=== PATIENT | male | born 1995 | race Caucasian/White ===

== ENCOUNTER → 2017-02-20 | Emergency (ER) | payer SELFPAY ==
[~2017-02-20] VITALS: Ht 190.5 cm; Wt 77.1 kg
[~2017-02-20] MED LIST: [UNRECOGNIZED DRUG - OTHER]
[2017-02-20 21:09] VITALS: BP 130/73
--- NOTE | 2017-02-21 04:14 | Emergency Room Report ---
History of Present Illness General Chief Complaint: Substance Abuse Source: Patient Present Illness HPI Patient is a 21-year-old male who presented for increased diarrhea and body aches after stopping heroin. He reports having last used one day ago to he reports having generalized bodyaches. He denies any fever. He states that he had the previous he taken Suboxone. He denied any new skin lesions. Allergies: Coded Allergies: No Known Allergies (Unverified , 02/20/17) Patient History Past Medical History: see triage record Reviewed Nursing Documentation: PMH: Agreed, PSxH: Agreed Review of Systems All Other Systems: negative except mentioned in HPI Physical Exam Vital Signs Date Time Temp Pulse Resp B/P (MAP) Pulse Ox O2 Delivery O2 Flow Rate FiO2 02/20/17 21:09 98.1 97 18 130/73 100 Room Air General Appearance: well appearing, no apparent distress, alert, GCS 15 Head: normocephalic, atraumatic ENT: hearing grossly normal, normal voice Neck: full range of motion, supple Respiratory: no respiratory distress, speaking full sentences Cardiovascular #1: normal inspection Gastrointestinal: normal inspection Musculoskeletal: normal inspection Neurologic: alert, oriented x3, purchasing agent III-XII nml as tested, normal gait Psychiatric: mood/affect normal Skin: no rash Medical Decision Making Diagnostic Impression: Primary Impression: Substance abuse ER Course Patient presented for opiate withdrawal. Differential diagnosis included was not limited to gastroenteritis, opiate withdrawal, endocarditis among others. Patient's benign exam and does not appear to require any further imaging or laboratory testing at this time. Patient was advised that I could not prescribe him Suboxone. The patient subsequently became angry and decided to leave despite being offered other medications for symptomatic relief. The patient appeared to be capable of self-care. Last Vital Signs Date Time Temp Pulse Resp B/P (MAP) Pulse Ox O2 Delivery O2 Flow Rate FiO2 02/20/17 21:09 98.1 97 18 130/73 100 Room Air Status: unchanged Disposition: HOME, SELF-CARE Condition: Stable Referrals: NOT CHOSEN DINH/,REFERRING (PCP) Mak Ruiz Feb 21, 2017 04:14
== END | disposition home or self-care (01) ==
LOC: EMR 22:27
DX: M79.1 Myalgia (principal); F11.10 Opioid abuse, uncomplicated
CPT/HCPCS: 99282